=== PATIENT | female | born 1960 | race Caucasian/White ===

== ENCOUNTER 2024-02-19 13:03 | Emergency (ER) | payer BC, SELFPAY ==
[2024-02-19 13:09] VITALS: BP 132/94
[2024-02-19 14:55] LABS: % Basophils 0.4 % (0-2); % Eosinophils 0.5 % (0-6); % Immature Granulocytes 0.4 % (0-0.5); % Lymphocytes 18.9 % (20.5-51.1); % Monocytes 6.7 % (1.7-9.3); % Neutrophils 73.1 % (42.2-75.2); Absolute Basophils 0.1 10^3/uL (0-0.2); Absolute Eosinophils 0.1 10^3/uL (0-0.7); Absolute Immature Granulocytes 0.1 10^3/uL (0-0.05); Absolute Lymphocytes 3.1 10^3/uL (1.2-3.4); Absolute Monocytes 1.1 10^3/uL (0.1-0.6); Absolute Neutrophils 11.9 10^3/uL (1.4-6.5); Hematocrit 42.3 % (37.0-47.0); Hemoglobin 14.7 g/dL (12.0-16.0); Mean Corp Hgb Conc. 34.8 g/dL (33.0-37.0); Mean Corpuscular Hgb 29.2 pg (27.0-31.0); Mean Corpuscular Volume 84.1 fL (81.0-99.0); Mean Platelet Volume 9.4 fL (7.4-10.4); Nucleated Red Blood Cells % 0 %; Platelet Count 312 10^3/uL (130-400); Red Blood Cell Count 5.03 10^6/uL (4.20-5.40); Red Cell Dist. Width 15.7 % (11.5-14.5); White Blood Cell Count 16.3 10^3/uL (4.8-10.8)
[2024-02-19 14:56] LABS: Urine Albumin Negative (Neg - Trace); Urine Bilirubin Negative (Negative); Urine Character Clear (Clear); Urine Color Yellow; Urine Glucose Negative (Negative); Urine Ketone 3+ (Negative); Urine Leukocyte Trace (Negative); Urine Nitrite Negative (Negative); Urine Occult Blood 2+ (Negative); Urine Specific Gravity 1.015 (<1.030); Urine Urobilinogen Negative (Neg - 1+)
[2024-02-19 15:09] LABS: ALT (SGPT) 15 U/L (0-35); AST (SGOT) 17 U/L (14-36); Albumin 4.2 g/dl (3.5-5.0); Alkaline Phosphatase 95 U/L (38-126); Blood Urea Nitrogen 8 mg/dl (7-17); Calcium 9.9 mg/dl (8.4-10.2); Carbon Dioxide 25 mmol/L (22-30); Chloride 105 mmol/L (98-107); Glucose 96 mg/dl (70-99); Potassium 3.9 mmol/L (3.5-5.1); Sodium 138 mmol/L (135-145); Total Bilirubin 1.2 mg/dl (0.2-1.3); Total Protein 7.4 g/dl (6.3-8.2); eGFR > 60.00
[2024-02-19] MEDS: ZOFRAN 4 MG IV (15:27)
[2024-02-19] MEDS: NSS 1000 IV (15:27)
[2024-02-19 15:31] VITALS: BP 142/55
--- NOTE | 2024-02-19 15:51 | ED.GENMED ---
History of Present Illness
<Madhav Borges PA-C - Last Filed: 02/21/24 22:25>
General
Chief Complaint: Abdominal Pain
Source: patient
Exam Limitations: none
Time Seen by Provider: 02/19/24 14:13
Travel History
Have you had any contact with someone who has COVID-19?: No
Do you have any symptoms of coronavirus? Fever > 100 degrees, chills, cough, shortness of breath, sore throat, loss of taste or smell, muscle aches, or headache?: No
History of Present Illness
History of Present Illness:
63-year-old female presents complaining of pain to the left lower abdomen onset yesterday getting worse today. Pain is constant sharp in nature does not radiate to the back without associated urinary symptoms. Nauseous but no vomiting. She notes
chills but no measurable fever. No other complaints at this time
Phy Exam
<Madhav Borges PA-C - Last Filed: 02/21/24 22:25>
Physical Exam
Physical Exam:
General: Uncomfortable appearing female no acute respiratory distress
HEENT: Normocephalic atraumatic
Heart: Regular rate and rhythm no murmurs
Lungs: Clear no wheeze or rale
Abdomen soft tender to the left lower quadrant no guarding or rebound normal bowel sounds nondistended
Extremities: No cyanosis
Course
<Madhav Borges PA-C - Last Filed: 02/21/24 22:25>
Orders/Labs/Results
Orders:
Orders
02/19/24 14:25
CT Abd/pelvis W Iv Cont Urgent
Comment:
Reason For Exam: llq pain
02/19/24 14:41
Complete Blood Count/With Diff Urgent
Comprehensive Metabolic Panel Urgent
Urinalysis Reflex To Culture Urgent
Date Specimen was Collected: 02/19/24
Time Specimen was Collected: 14:38
Urine Microscopic Reflex Cult Urgent
02/19/24 14:59
0.9% Sodium Chloride 1000 ml [Nss] 1,000 ml IV BOLUS
HYDROmorphone [Dilaudid] 1 mg IV NOW STA
Ondansetron Injectable [Zofran] 4 mg IV NOW STA
02/19/24 17:58
Amoxicillin 875 mg/Clav 125 mg [Augmentin 875 mg/125 mg] 1 tablet PO NOW STA
Abnormal Lab Results
02/19/24
14:41
WBC 16.3 H 10^3/uL
(4.8-10.8)
RDW 15.7 H %
(11.5-14.5)
Abs Immat Gran (auto) 0.1 H 10^3/uL
(0-0.05)
Absolute Neuts (auto) 11.9 H 10^3/uL
(1.4-6.5)
Absolute Monos (auto) 1.1 H 10^3/uL
(0.1-0.6)
Lymphocytes % 18.9 L %
(20.5-51.1)
Creatinine 0.5 L mg/dL
(0.6-1.0)
Urine Ketones 3+ A
(Negative)
Ur Occult Blood Reflex 2+ A
(Negative)
Leukocyte Esterase Rfl Trace A
(Negative)
Urine Bacteria (Reflex) Few A
(Negative)
02/19/24 14:41
02/19/24 14:41
Vital Signs
Initial and Last Documented VS:
Initial Vital Signs
Temp Pulse Resp BP Pulse Ox
99.3 F 103 18 132/94 95
02/19/24 13:09 02/19/24 13:09 02/19/24 13:09 02/19/24 13:09 02/19/24 13:09
Last Documented Vital Signs
Temp Pulse Resp BP Pulse Ox
98.8 F 84 18 121/48 94
02/19/24 17:51 02/19/24 17:51 02/19/24 13:09 02/19/24 17:51 02/19/24 17:51
<Yevgeniy Ike, - Last Filed: 02/19/24 16:45>
Orders/Labs/Results
Orders:
Orders
02/19/24 14:25
CT Abd/pelvis W Iv Cont Urgent
Comment:
Reason For Exam: llq pain
02/19/24 14:41
Complete Blood Count/With Diff Urgent
Comprehensive Metabolic Panel Urgent
Urinalysis Reflex To Culture Urgent
Date Specimen was Collected: 02/19/24
Time Specimen was Collected: 14:38
Urine Microscopic Reflex Cult Urgent
02/19/24 14:59
0.9% Sodium Chloride 1000 ml [Nss] 1,000 ml IV BOLUS
HYDROmorphone [Dilaudid] 1 mg IV NOW STA
Ondansetron Injectable [Zofran] 4 mg IV NOW STA
02/19/24 17:58
Amoxicillin 875 mg/Clav 125 mg [Augmentin 875 mg/125 mg] 1 tablet PO NOW STA
Abnormal Lab Results
02/19/24
14:41
WBC 16.3 H 10^3/uL
(4.8-10.8)
RDW 15.7 H %
(11.5-14.5)
Abs Immat Gran (auto) 0.1 H 10^3/uL
(0-0.05)
Absolute Neuts (auto) 11.9 H 10^3/uL
(1.4-6.5)
Absolute Monos (auto) 1.1 H 10^3/uL
(0.1-0.6)
Lymphocytes % 18.9 L %
(20.5-51.1)
Creatinine 0.5 L mg/dL
(0.6-1.0)
Urine Ketones 3+ A
(Negative)
Ur Occult Blood Reflex 2+ A
(Negative)
Leukocyte Esterase Rfl Trace A
(Negative)
Urine Bacteria (Reflex) Few A
(Negative)
02/19/24 14:41
02/19/24 14:41
Vital Signs
Initial and Last Documented VS:
Initial Vital Signs
Temp Pulse Resp BP Pulse Ox
99.3 F 103 18 132/94 95
02/19/24 13:09 02/19/24 13:09 02/19/24 13:09 02/19/24 13:09 02/19/24 13:09
Last Documented Vital Signs
Temp Pulse Resp BP Pulse Ox
98.8 F 84 18 121/48 94
02/19/24 17:51 02/19/24 17:51 02/19/24 13:09 02/19/24 17:51 02/19/24 17:51
<Madhav Borges PA-C - Last Filed: 02/21/24 22:25>
MDM/Problems Addressed
Differential Diagnosis Includes:
Left-sided abdominal pain. Consider diverticulitis versus abscess versus obstruction
Labs pending. Patient was offered medicine for discomfort however she declined. CT pending
<Madhav Borges PA-C - Last Filed: 02/21/24 22:25>
*Critical Care Note
Total Time (30-74mins, 75-104mins- exclusive of procedures): Not Applicable
ED Attending Note
<Madhav Borges PA-C - Last Filed: 02/21/24 22:25>
-
Portions of this chart may have been created with voice recognition software.� Occasional wrong word or��sound alike� substitutions may have occurred due to the inherent limitations of voice recognition software.
<Yevgeniy Ramires DO - Last Filed: 02/19/24 16:45>
ED Attending Note
Patient seen and examined by attending physician: Yes
I performed the substantive portion of visit, reviewed & personally made and approve the management plan that is documented in note by myself or LIZBETH.: Yes
ED Attending Note:
Patient is a 63-year-old female who presents to the emergency department complaining of lower abdominal pain, chills and diarrhea. Patient noticed that few days ago and does not remember trigger. Patient had some nausea. Patient denies any recent
travel history, or seafood or anyone else at home ill. Patient denies any antibiotic recs. Patient does appear to be uncomfortable. Heart is regular lungs are clear. Patient is mildly dehydrated. Patient has moderate left lower quadrant
tenderness with guarding. No cyanosis or edema. Patient's W BCs are elevated. I expect the patient will require admission due to discomfort as well as severity of illness. Awaiting CT.
Discharge Plan
Departure
Patient Disposition: Home (Routine Discharge)
Date of Disposition: 02/19/24
Time of Disposition: 17:58
Patient with high blood pressure during this ER visit?: No
Condition: Good
Covid-19: Not Applicable
Discharge Problem:
Diverticulitis
Instructions: Clear Liquid Diet, Diverticulitis (DC)
Prescriptions:
New
amoxicillin-pot clavulanate 875-125 mg tablet
1 tab PO BID Qty: 14 0RF
Referrals:
Yevgeniy Loco DO [Family Provider] - Follow up in 2-3 days
Activity Restrictions/Additional Instructions:
Return to the emergency department immediately for any changes in/worsening of your symptoms.
Interventions
Interventions:
*Risk Screen - Suicide Last Done: 02/19/24 13:09
*General Assessment Last Done: 02/19/24 13:09
*Neglect/Abuse Screening Last Done: 02/19/24 13:09
ED- Fall Risk Assessment Last Done: 02/19/24 18:24
*ED COVID-19 Vaccine History Last Done: 02/19/24 13:09
*Nursing Disposition Last Done: 02/19/24 18:24
[id number]-[id number] Assessment Last Done: 02/19/24 14:46
Discharge Date and Time
Discharge Date/Time: 02/19/24 18:25
Print Language: SAMMARINESE
[2024-02-19 16:54] LABS: Urine Mucus Many
[2024-02-19 16:55] LABS: Urine Bacteria Few (Negative); Urine Red Blood Cell 0-2 /HPF (0-2)
[2024-02-19 17:51] VITALS: BP 121/48
[2024-02-19] MEDS: AUGMENTIN 875 MG/125 MG 1 TABLET PO (18:13)
== END 2024-02-19 18:25 | disposition home or self-care (01) ==
LOC: EMR 13:03
PROVIDERS: Physician Assistant; EMERGENCY PHYSICIAN Emergency Medicine; FAMILY PHYSICIAN Family Medicine
DX: K57.32 Diverticulitis of large intestine without perforation or abscess without bleeding (principal)
CPT/HCPCS: 99285; 96374; 96375; 96361; 74177; 80053; 81003; 81015; 85025; Q9967